=== PATIENT | female | born 1950 | race Caucasian/White ===

== ENCOUNTER 2016-12-29 05:51 | Observation (INO) ==
[2016-12-29] MEDS ORDERED: 0.9 % SODIUM CHLORIDE 1,000 ML IV ONE (05:54)
[2016-12-29] MEDS ORDERED: ONDANSETRON 4 MG/2 ML VIAL IV ONE (05:54)
[2016-12-29] MEDS: HYDROmorphone 2 MG/ML SYRINGE IV PRN ×12 (05:55→23:58)
[2016-12-29] MEDS: HYDROmorphone 2 MG/ML SYRINGE IV ONE ×2 (06:09→06:26)
[2016-12-29 06:37] LABS: Basophils # (Auto) 0 K/mcL (0.0-0.3); Basophils % (Auto) 0 % (0.0-2.0); Eosinophils # (Auto) 0 K/mcL (0.0-0.7); Eosinophils % (Auto) 0 % (0.0-7.0); Granulocytes % (Auto) 87.3 % (38.0-78.0); Lymphocytes # (Auto) 1.4 K/mcL (1.5-4.8); Lymphocytes % (Auto) 9.9 % (15.5-49.0); Mean Cell Volume 87.4 fL (80.0-100.0); Mean Corpuscular HGB Conc 34.4 g/dL (31.0-36.0); Monocytes # (Auto) 0.4 K/mcL (0.1-0.9); Monocytes % (Auto) 2.8 % (1.0-12.0); Platelet Count 263 K/mcL (140-440); RBC 4.76 M/mcL (4.00-5.20); Red Cell Distribution Width 13.4 % (11.5-14.5)
[2016-12-29 06:56] LABS: ALT/SGPT 22 U/l (0-40); Albumin 4.3 gm/dL (3.2-5.2); Albumin/Globulin Ratio 1.4 (1.0-2.3); Alkaline Phosphatase 48 U/L (39-117); Blood Urea Nitrogen 14 mg/dl (8-23); Lipase 35 U/L (7-60)
--- NOTE | 2016-12-29 07:01 | Emergency Department Note ---
Abdominal Pain HPI - General Chief Complaint: Abdominal Pain Stated Complaint: abdominal pain Time Seen by Provider: 12/29/16 06:58 Source: patient Mode of arrival: ambulatory Limitations: no limitations - History of Present Illness HPI Narrative: This patient began having right upper quadrant abdominal pain last evening about 5 pm. Associated with nausea and vomiting. Pain seems to be severe and does radiate into the upper back. MD Complaint: abdominal pain Onset (ago): hour(s) Consistency: constant Location: RUQ Severity: severe Quality: stabbing Radiation: back - Related Data Home Medications Medication Instructions Recorded Confirmed Aspirin [Kiah Chewable Aspirin] 81 mg PO DAILY 12/29/16 12/29/16 Furosemide [Lasix] 40 mg PO DAILY 12/29/16 12/29/16 Hydrocodone/APAP 7.5/325Mg [[place] 1 - 2 tab PO Q6HP PRN 12/29/16 12/29/16 7.5/325Mg] Lisinopril [Zestril] 5 mg PO DAILY 12/29/16 12/29/16 Naproxen 500 mg PO BID 12/29/16 12/29/16 Venlafaxine HCl [Effexor Xr] 150 mg PO DAILY 12/29/16 12/29/16 Allergies Allergy/AdvReac Type Severity Reaction Status Date / Time No Known Drug Allergies Allergy Verified 12/29/16 05:53 Review of Systems All systems ED: reviewed and negative except as stated. Abdominal Pain PMH - Past Medical History Surgical history ED: Reports: pacemaker/AICD - Social History Smoking status: Never smoker Physical Exam - General Limitations: no limitations General appearance: alert, in no apparent distress - Head Head exam: atraumatic, normocephalic - Eye Eye exam: Present: normal appearance - ENT ENT exam: normal exam - Neck Neck exam: Present: normal inspection - Chest Chest inspection: Present: normal inspection - Respiratory Respiratory exam: Present: normal lung sounds bilaterally - Cardiovascular Cardiovascular exam: Present: regular rate, normal rhythm, normal heart sounds - Abdominal Exam Abdominal exam: Present: soft, tenderness, guarding. Absent: distention Abdominal tenderness: Present: RUQ, severe - Neurological Exam Neurological exam: Present: alert, oriented X3 - Psychiatric Psychiatric exam: Present: normal affect, normal mood - Skin Skin exam: Present: warm, dry, intact Course Vital Signs Temperature 97.3 F 12/29/16 05:51 Pulse Rate 71 12/29/16 05:51 Respiratory Rate 20 12/29/16 05:51 Blood Pressure 191/107 12/29/16 05:51 Pulse Oximetry (%) 98 12/29/16 05:51 Temperature 97.3 F 12/29/16 05:51 Pulse Rate 92 H 12/29/16 06:55 Respiratory Rate 19 12/29/16 06:55 Blood Pressure 182/110 12/29/16 06:46 Pulse Oximetry (%) 91 12/29/16 06:55 Abdominal Pain - MDM Narrative Medical decision making narrative: Patient has acute cholecystitis with gallstones in the gallbladder wall neck. The gallbladder wall is slightly edematous. White count is 14,000. Liver function tests fortunately are normal. I gave the patient Migel and she will be admitted by Dr. Paniagua the surgeon for cholecystectomy. - Lab Data Lab results reviewed: Yes I reviewed the patient's lab results. Result diagrams: 12/29/16 06:00 12/29/16 06:00 Lab Results 12/29/16 12/29/16 Range/Units 06:00 06:00 WBC 14.2 H (4.5-11.0) K/mcL RBC 4.76 (4.00-5.20) M/mcL Hgb 14.3 (12.0-15.0) g/dL Hct 41.6 (36.0-48.0) % MCV 87.4 (80.0-100.0) fL MCH 30.0 (26.0-34.0) pg MCHC 34.4 (31.0-36.0) g/dL RDW 13.4 (11.5-14.5) % Plt Count 263 (140-440) K/mcL MPV 7.8 (7.4-10.4) fL Gran % 87.3 H (38.0-78.0) % Lymph % (Auto) 9.9 L (15.5-49.0) % Morton % (Auto) 2.8 (1.0-12.0) % Eos % (Auto) 0 (0.0-7.0) % Baso % (Auto) 0 (0.0-2.0) % Gran # 12.4 H (1.8-8.0) K/mcL Lymph # (Auto) 1.4 L (1.5-4.8) K/mcL Morton # (Auto) 0.4 (0.1-0.9) K/mcL Eos # (Auto) 0 (0.0-0.7) K/mcL Baso # (Auto) 0 (0.0-0.3) K/mcL Sodium 137 (133-145) mmol/L Potassium 3.7 (3.3-5.1) mmol/L Chloride 94 L (96-108) mmol/L Carbon Dioxide 23 (22-30) mmol/L Anion Gap 20.0 H (8-16) BUN 14 (8-23) mg/dl Creatinine 0.7 (0.6-1.1) mg/dl GFR Calculation 90 Glucose 194 H (70-105) mg/dL Calcium 9.7 (8.6-10.4) mg/dl Total Bilirubin 1.0 (0.0-1.0) mg/dL AST 31 (0-37) U/l ALT 22 (0-40) U/l Alkaline Phosphatase 48 (39-117) U/L Total Protein 7.4 (5.9-8.4) gm/dL Albumin 4.3 (3.2-5.2) gm/dL Globulin 3.1 (2.2-3.7) gm/dL Albumin/Globulin Ratio 1.4 (1.0-2.3) Lipase 35 (7-60) U/L - Radiology Data Radiology results reviewed: Yes I reviewed the patient's radiology results. Disposition Pt seen by ORGANIZATIONAL EFFECTIVENESS CONSULTANT/PA only: No Clinical Impression: Acute cholecystitis Disposition: Xfer As Outpt/Obs ([facility]) Condition: Good Referrals: No,PCP [Referring] - Time of Disposition: 08:20
[2016-12-29] MEDS ORDERED: PIPERACILLIN SODIUM/TAZOBACTAM 3.375 GM in DEXTROSE 5% IN WATER 50 ML IV ONE (07:46)
[2016-12-29 10:11] LABS: Appearance,Urine HAZY; Bacteria,Urine 0 /hpf (0); Bilirubin,Urine NEG (NEG); Color,Urine YELLOW; Glucose,Urine (UA) 50 mg/dL (NEG); Leukocyte Esterase,Urine NEG /uL (NEG); Mucus,Urine FEW /hpf (0); Nitrate,Urine NEG (NEG); Protein,Urine NEG (NEG); Specific Gravity,Urine 1.016 (1.000-1.035); Urine Amorphous Crystals FEW /hpf (0); Urine Blood NEG mg/dL (<0.03); Urine RBC 5 /hpf (0-1); Urine Squamous Epithelial Cell < 1 /hpf (0-4); Urine WBC 0 /hpf (0-4); Urobilinogen,Urine NEG (NEG)
--- NOTE | 2016-12-29 12:56 | Ultrasound Report ---
CLINICAL INFORMATION: Right upper quadrant pain COMPARISON: None. FINDINGS: There are multiple stones in the gallbladder, ranging up to 1 cm, with one stone lodged in the gallbladder neck. The gallbladder wall is mildly thickened: 4 mm. There is mild focal tenderness suggesting cholecystitis. Common bile and not visualized. The liver is diffusely hyperechoic compatible with fatty change. Pancreas is obscured by bowel gas. No free fluid IMPRESSION: Cholelithiasis with probable mild cholecystitis. Hyperechoic liver compatible fatty change. Common bile duct and pancreas not visualized Interpreted and Authenticated by: Elder Beckwith 12/29/16
[2016-12-29] MEDS ORDERED: oxyCODONE/APAP 5/325MG TABLET PO PRN (13:29)
--- NOTE | 2016-12-29 13:41 | General Surg History&Physical ---
History of Present Illness Patient information: Note initiated : 12/29/16 at 1:39 pm Service Date, if different from initiated Date: [] Patient: Shelly Howard a 66 y/o F admitted on 12/29/16 for Abd Pain. Chief Complaint: [] Recurrent abdominal pain with nausea and vomiting HPI: Ms. Howard is a 66 year old F admitted with acute cholecystitis. The patient had onset of severe abdominal pain about 5 PM yesterday. This was followed by multiple episodes of nausea and vomiting which became worse throughout the night. The pain radiated through to her back in her right shoulder. She finally came to the emergency room about 5 AM where she was noted to be in severe distress. Vital signs were stable except for mild tachycardia. White blood count was 14,000. Ultrasound showed gallstones with obstructive cystic duct due to a large gallstone and mildly thickened gallbladder wall. She has been admitted for treatment and probable urgent surgery. Review of Systems - Constitutional anorexia, headache(s), malaise - EENT Nose, mouth and throat: headache(s), no abnormal hearing, no dysphagia - Breasts other (Operative changes on the right) - Cardiovascular dyspnea on exertion, palpatations, rapid heart rate - Respiratory dyspnea on exertion, no cough, no wheezing, no chest congestion - Gastrointestinal abdominal pain, heartburn, nausea, vomiting - Genitourinary Genitourinary: no difficulty urinating, no urinary frequency, no urinary incontinence - Musculoskeletal arthralgias, joint swelling, myalgias, stiffness - Integumentary no changing lesions, no pruritus, no rash - Neurological headache(s), no abnormal gait, no dizziness, no memory loss, no syncope, no vertigo - Psychiatric anxiety, confusion, depression, irritability - Endocrine no cold intolerance, no heat intolerance, no palpitations - Hematologic/Lymphatic no easy bleeding, no easy bruising, no lymphadenopathy - Allergic/Immunologic no tongue swelling, no throat swelling, no wheezing Past History Past medical history: Degenerative arthritis Right breast cancer 1999 ASCVD pacemaker Hypertension Chronic depression 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 Past surgical history: Abdominal hysterectomy with bilateral salpingo-oophorectomy Right mastectomy with TRAM flap closure right breast Abdominoplasty Left total knee arthroplasty Right shoulder arthroplasty Past family history: Mother age 79 due to diabetes and complications of alcoholism Father age 87 cause unknown Past social history: Never smoker Never alcohol drinker Never a drug user Medications and Allergies Home Medications Medication Instructions Recorded Confirmed Type Aspirin [Kiah Chewable Aspirin] 81 mg PO DAILY 12/29/16 12/29/16 History Furosemide [Lasix] 40 mg PO DAILY 12/29/16 12/29/16 History Hydrocodone/APAP 7.5/325Mg [[place] 1 - 2 tab PO Q6HP PRN 12/29/16 12/29/16 History 7.5/325Mg] Lisinopril [Zestril] 5 mg PO DAILY 12/29/16 12/29/16 History Naproxen 500 mg PO BID 12/29/16 12/29/16 History Venlafaxine HCl [Effexor Xr] 150 mg PO DAILY 12/29/16 12/29/16 History Allergies Allergy/AdvReac Type Severity Reaction Status Date / Time No Known Drug Allergies Allergy Verified 12/29/16 05:53 Exam Temp Pulse Resp BP Pulse Ox 97.3 F 82 20 158/75 92 12/29/16 11:53 12/29/16 09:33 12/29/16 11:53 12/29/16 11:53 12/29/16 11:53 - General physical appearance well developed, well nourished, severe distress, severe pain - Eyes PERRL, normal ocular movement. negative: icteric - ENT normal pinna, normal nares, normal mucosa, no hearing loss, no congestion - Head Head exam IM: Present: atraumatic, normocephalic - Neck no masses, no bruits, trachea midline, no lymphadectomy, no venous distension - Cardiovascular Cardiovascular exam IM: Present: irregular rhythm, +S1, +S2. Absent: gallop, JVD - Respiratory normal expansion, normal respiratory effort, clear to percussion, clear to auscultation - Abdomen Abdomen: Present: soft, tender, bowel sounds, surgical scars (Status post abdominoplasty with repositioning of umbilicus), guarding, rebound, distended Hernia: Present: none - Genitourinary Present: normal external genitalia - Integumentary Present: no rash, no growths, no abnormal pigmentation - Neurologic Present: normal coordination, normal sensation - Musculoskeletal Present: normal gait, normal posture - Psychiatric Present: oriented to time, oriented to person, oriented to place, speech is normal, memory intact Assessment and Plan (1) Cholecystitis, acute with cholelithiasis . Decision for surgery will be made after her echocardiogram is completed Status: Acute (2) Cardiomyopathy due to chemotherapy Stat echocardiogram will be done Status: Acute (3) History of cancer of right breast Status: Acute (4) Hypertension Status: Acute (5) Degenerative arthritis Status: Acute (6) Chronic depression Status: Acute
[2016-12-29] MEDS: 0.9 % SODIUM CHLORIDE 1,000 ML IV SCH ×2 (13:47→21:53)
--- NOTE | 2016-12-29 14:04 | XRay Report ---
CLINICAL INFORMATION: Preop COMPARISON: None. FINDINGS: The heart is mildly enlarged. Cardiac defibrillator and leads are unremarkable. Mediastinum and pulmonary vessels are normal. The lungs are clear. No effusions. IMPRESSION: No acute cardiopulmonary disease Interpreted and Authenticated by: Elder Beckwith 12/29/16
[2016-12-29] MEDS: PIPERACILLIN SODIUM/TAZOBACTAM 3.375 GM in DEXTROSE 5% IN WATER 50 ML IV SCH ×3 (15:01→23:58)
[2016-12-30] MEDS: HYDROmorphone 2 MG/ML SYRINGE IV PRN ×8 (03:11→23:42)
[2016-12-30] MEDS: 0.9 % SODIUM CHLORIDE 1,000 ML IV SCH ×4 (05:07→23:44)
[2016-12-30] MEDS: PIPERACILLIN SODIUM/TAZOBACTAM 3.375 GM in DEXTROSE 5% IN WATER 50 ML IV SCH ×3 (06:01→17:47)
[2016-12-30] MEDS ORDERED: FLU VACC QS2017-18 36MOS UP/PF 60 MCG/0.5 ML SYRINGE IM ONE (09:00)
[2016-12-30] MEDS ORDERED: PANTOPRAZOLE 40 MG VIAL IV ONE (09:15)
[2016-12-30 09:17] LABS: Basophils # (Auto) 0 K/mcL (0.0-0.3); Basophils % (Auto) 0.3 % (0.0-2.0); Eosinophils # (Auto) 0.1 K/mcL (0.0-0.7); Granulocytes % (Auto) 71.4 % (38.0-78.0); Lymphocytes # (Auto) 1.7 K/mcL (1.5-4.8); Lymphocytes % (Auto) 19.4 % (15.5-49.0); Mean Corpuscular HGB Conc 34.4 g/dL (31.0-36.0); Monocytes # (Auto) 0.7 K/mcL (0.1-0.9); Monocytes % (Auto) 7.9 % (1.0-12.0); Platelet Count 192 K/mcL (140-440); RBC 3.83 M/mcL (4.00-5.20); Red Cell Distribution Width 13.4 % (11.5-14.5)
[2016-12-30 09:38] LABS: ALT/SGPT 35 U/l (0-40); Albumin 3.2 gm/dL (3.2-5.2); Albumin/Globulin Ratio 1.3 (1.0-2.3); Alkaline Phosphatase 39 U/L (39-117); Bilirubin,Direct 0.4 mg/dL (0.0-0.3); Blood Urea Nitrogen 12 mg/dl (8-23); Gamma Glutamyl Transpeptidase 37 U/L (5-36); Magnesium 1.7 mg/dL (1.6-2.5)
[2016-12-30] MEDS ORDERED: IPRATROPIUM/ALBUTEROL 3 ML AMPUL.NEB NEB PRN (13:11)
[2016-12-30] MEDS ORDERED: diphenhydrAMINE 50 MG/ML VIAL IV PRN (13:11)
[2016-12-30] MEDS ORDERED: ONDANSETRON 4 MG/2 ML VIAL IV PRN ×2 (13:11→14:51)
[2016-12-30] MEDS ORDERED: BENZOCAINE/MENTHOL 1 LOZENGE PO PRN (13:11)
[2016-12-30] MEDS ORDERED: NALOXONE HCL 0.4 MG/ML VIAL IV PRN (13:11)
[2016-12-30] MEDS ORDERED: fentaNYL 100 MCG/2 ML VIAL IV PRN ×2 (13:11→15:07)
[2016-12-30] MEDS ORDERED: FLUMAZENIL 0.1 MG/ML ML IV PRN (13:11)
[2016-12-30] MEDS ORDERED: MEPERIDINE 25 MG/ML SYRINGE IV PRN (13:11)
[2016-12-30] MEDS ORDERED: HYDROmorphone 2 MG/ML SYRINGE IV PRN (13:11)
[2016-12-30] MEDS ORDERED: LACTATED RINGERS 250 ML IV PRN (13:11)
[2016-12-30] MEDS ORDERED: LACTATED RINGERS 1,000 ML IV SCH (13:15)
[2016-12-30] MEDS ORDERED: NEOSTIGMINE 1 MG/ML VIAL IV ONE (13:22)
[2016-12-30] MEDS ORDERED: ROCURONIUM 10 MG/ML ML IV ONE (13:22)
[2016-12-30] MEDS ORDERED: fentaNYL 100 MCG/2 ML VIAL IV ONE (13:22)
[2016-12-30] MEDS ORDERED: MIDAZOLAM 5 MG/5 ML VIAL ONE (13:22)
[2016-12-30] MEDS ORDERED: DEXAMETHASONE 10 MG/ML VIAL ONE (13:22)
[2016-12-30] MEDS ORDERED: GLYCOPYRROLATE 0.2 MG/ML VIAL IV ONE (13:22)
[2016-12-30] MEDS ORDERED: ONDANSETRON 4 MG/2 ML VIAL ONE (13:22)
[2016-12-30] MEDS ORDERED: LIDOCAINE HCL/PF 100 MG/5 ML SYRINGE IV ONE (13:22)
[2016-12-30] MEDS ORDERED: PROPOFOL 200 MG/20 ML VIAL IV ONE (13:22)
--- NOTE | 2016-12-30 14:35 | Brief Operative Note ---
Date of procedure: 12/30/16 Pre-op diagnosis: acute cholecystitiswith cholelithiasis Post-op diagnosis: other (acute gangrenous cholecystitis with cholelithiasis) Procedure: laparoscopic cholecystectomy Grafts/Implants: No (ciera x 1) Anesthesia: GETA Findings: acute severe ibflammation of gall bladder with necrotic wall Complications: none Surgeon: Juan Paniagua Estimated blood loss (cc): 100 Specimens Removed/Pathology: other (gallbladder) Condition: stable Disposition: PACU
[2016-12-30] MEDS ORDERED: ACETAMINOPHEN 1,000 MG/100 ML BOTTLE IV PRN ×2 (14:51→15:00)
[2016-12-30 19:30] LABS: Basophils # (Auto) 0 K/mcL (0.0-0.3); Basophils % (Auto) 0.4 % (0.0-2.0); Eosinophils # (Auto) 0.1 K/mcL (0.0-0.7); Eosinophils % (Auto) 0.9 % (0.0-7.0); Granulocytes % (Auto) 87.2 % (38.0-78.0); Lymphocytes # (Auto) 0.9 K/mcL (1.5-4.8); Lymphocytes % (Auto) 9.6 % (15.5-49.0); Mean Cell Volume 87.7 fL (80.0-100.0); Mean Corpuscular HGB Conc 33.9 g/dL (31.0-36.0); Mean Corpuscular Hemoglobin 29.7 pg (26.0-34.0); Monocytes # (Auto) 0.2 K/mcL (0.1-0.9); Monocytes % (Auto) 1.9 % (1.0-12.0); Platelet Count 192 K/mcL (140-440); RBC 3.79 M/mcL (4.00-5.20); Red Cell Distribution Width 13.8 % (11.5-14.5)
[2016-12-30 19:40] LABS: ALT/SGPT 50 U/l (0-40); Albumin 3.2 gm/dL (3.2-5.2); Albumin/Globulin Ratio 1.2 (1.0-2.3); Alkaline Phosphatase 43 U/L (39-117); Bilirubin,Direct 0.4 mg/dL (0.0-0.3); Blood Urea Nitrogen 11 mg/dl (8-23); Gamma Glutamyl Transpeptidase 39 U/L (5-36); Magnesium 1.6 mg/dL (1.6-2.5); Uric Acid 3.7 mg/dL (2.5-8.0)
[2016-12-30] MEDS: VENLAFAXINE 150 MG CAP.XL.24H PO SCH (20:14)
[2016-12-31] MEDS: PIPERACILLIN SODIUM/TAZOBACTAM 3.375 GM in DEXTROSE 5% IN WATER 50 ML IV SCH ×3 (00:12→11:23)
[2016-12-31] MEDS: HYDROmorphone 2 MG/ML SYRINGE IV PRN (01:38)
[2016-12-31] MEDS: oxyCODONE/APAP 5/325MG TABLET PO PRN ×4 (03:59→15:30)
[2016-12-31 05:44] LABS: Basophils # (Auto) 0 K/mcL (0.0-0.3); Basophils % (Auto) 0.1 % (0.0-2.0); Eosinophils # (Auto) 0 K/mcL (0.0-0.7); Eosinophils % (Auto) 0 % (0.0-7.0); Granulocytes % (Auto) 82.2 % (38.0-78.0); Lymphocytes % (Auto) 13.6 % (15.5-49.0); Mean Cell Volume 88.8 fL (80.0-100.0); Mean Corpuscular HGB Conc 34.1 g/dL (31.0-36.0); Mean Corpuscular Hemoglobin 30.3 pg (26.0-34.0); Monocytes # (Auto) 0.3 K/mcL (0.1-0.9); Monocytes % (Auto) 4.1 % (1.0-12.0); Platelet Count 187 K/mcL (140-440); RBC 3.31 M/mcL (4.00-5.20); Red Cell Distribution Width 13.8 % (11.5-14.5)
[2016-12-31 06:10] LABS: ALT/SGPT 38 U/l (0-40); Albumin/Globulin Ratio 1.3 (1.0-2.3); Alkaline Phosphatase 45 U/L (39-117); Bilirubin,Direct < 0.2 mg/dL (0.0-0.3); Blood Urea Nitrogen 10 mg/dl (8-23); Gamma Glutamyl Transpeptidase 37 U/L (5-36); Magnesium 1.7 mg/dL (1.6-2.5); Uric Acid 3.1 mg/dL (2.5-8.0)
[2016-12-31] MEDS: 0.9 % SODIUM CHLORIDE 1,000 ML IV SCH ×3 (06:27→11:30)
[2016-12-31] MEDS ORDERED: PANTOPRAZOLE 40 MG VIAL IV SCH ×2 (07:30→09:00)
[2016-12-31] MEDS ORDERED: FLU VACC QS2017-18 36MOS UP/PF 60 MCG/0.5 ML SYRINGE IM ONE (08:00)
[2016-12-31] MEDS: VENLAFAXINE 150 MG CAP.XL.24H PO SCH (08:19)
[2016-12-31] MEDS ORDERED: VENLAFAXINE 150 MG CAP.XL.24H PO SCH (09:00)
--- NOTE | 2016-12-31 14:55 | General Surgery Progress Note ---
Subjective Patient reports: feels better, pain is less, tolerating liquids well, flatus, bowel movement, afebrile Narrative: Note initiated : 12/31/16 at 2:53 pm Service Date, if different from initiated Date: [] Patient: Shelly Howard 66 y/o F admitted on 12/29/16 for Abd Pain/Cholecystitis , Acute with Cholelithiasis. Chief Complaint: [patient is much better. she has much less pain.her liver enzymes are good. her hgb id down slightly.] Objective Temp Pulse Resp BP Pulse Ox 98.6 F 75 16 122/80 93 12/31/16 12:00 12/31/16 03:51 12/31/16 12:00 12/31/16 12:00 12/31/16 12:00 - Additional Data Intake & Output - Last 24 hours: Intake & Output 12/29/16 12/30/16 12/31/16 01/01/17 05:59 05:59 05:59 05:59 Intake Total 2446 / 3496 3190 / 3190 1480 / 1480 Output Total 1765 / 1765 500 / 500 Balance 2446 / 3496 1425 / 1425 980 / 980 Weight 196 lb 12.8 oz 205 lb 3.2 oz - General physical appearance no distress - Eyes PERRL - ENT no congestion - Neck no venous distension - Respiratory normal respiratory effort, clear to auscultation - Cardiovascular Cardiovascular exam: Present: normal rate and rhythm, RRR, +S1, +S2. Absent: JVD - Abdomen tender, surgical scars, distended (abdomen is distended; ciera drainage is bloody) - Integumentary no rash, no growths, no abnormal pigmentation - Neurologic normal coordination, normal sensation - Musculoskeletal normal gait, normal posture - Psychiatric oriented to time, oriented to person, oriented to place, speech is normal, memory intact - Labs 12/31/16 04:15 12/31/16 04:15 Diabetes panel 12/30/16 12/31/16 Range/Units 16:59 04:15 Sodium 137 138 (133-145) mmol/L Potassium 3.7 3.7 (3.3-5.1) mmol/L Chloride 98 104 (96-108) mmol/L Carbon Dioxide 24 24 (22-30) mmol/L BUN 11 10 (8-23) mg/dl Creatinine 0.6 0.5 L (0.6-1.1) mg/dl Glucose 114 H 153 H (70-105) mg/dL Calcium 8.6 8.3 L (8.6-10.4) mg/dl AST 76 H 48 H (0-37) U/l ALT 50 H 38 (0-40) U/l Alkaline Phosphatase 43 45 (39-117) U/L Total Protein 5.8 L 5.4 L (5.9-8.4) gm/dL Albumin 3.2 3.0 L (3.2-5.2) gm/dL Triglycerides 109 102 (<150) mg/dl Calcium panel 12/30/16 12/31/16 Range/Units 16:59 04:15 Calcium 8.6 8.3 L (8.6-10.4) mg/dl Phosphorus 1.7 L 2.0 L (2.7-4.5) mg/dL Albumin 3.2 3.0 L (3.2-5.2) gm/dL Pituitary panel 12/30/16 12/31/16 Range/Units 16:59 04:15 Sodium 137 138 (133-145) mmol/L Potassium 3.7 3.7 (3.3-5.1) mmol/L Chloride 98 104 (96-108) mmol/L Carbon Dioxide 24 24 (22-30) mmol/L BUN 11 10 (8-23) mg/dl Creatinine 0.6 0.5 L (0.6-1.1) mg/dl Glucose 114 H 153 H (70-105) mg/dL Calcium 8.6 8.3 L (8.6-10.4) mg/dl Adrenal panel 12/30/16 12/31/16 Range/Units 16:59 04:15 Sodium 137 138 (133-145) mmol/L Potassium 3.7 3.7 (3.3-5.1) mmol/L Chloride 98 104 (96-108) mmol/L Carbon Dioxide 24 24 (22-30) mmol/L BUN 11 10 (8-23) mg/dl Creatinine 0.6 0.5 L (0.6-1.1) mg/dl Glucose 114 H 153 H (70-105) mg/dL Calcium 8.6 8.3 L (8.6-10.4) mg/dl Total Bilirubin 0.8 0.5 (0.0-1.0) mg/dL AST 76 H 48 H (0-37) U/l ALT 50 H 38 (0-40) U/l Alkaline Phosphatase 43 45 (39-117) U/L Total Protein 5.8 L 5.4 L (5.9-8.4) gm/dL Albumin 3.2 3.0 L (3.2-5.2) gm/dL Assessment and Plan (1) Cholecystitis, acute with cholelithiasis Status: Acute Assessment and plan: patient is stable for discharge. Current Visit: Yes (2) Cardiomyopathy due to chemotherapy Status: Acute Current Visit: Yes (3) History of cancer of right breast Status: Acute Current Visit: Yes (4) Hypertension Status: Acute Current Visit: Yes (5) Degenerative arthritis Status: Acute Current Visit: Yes (6) Chronic depression Status: Acute Current Visit: Yes - Time Spent With Patient Total time spent is greater than 50% in coordination of care (as documented) at patient's floor/unit and/or counseling patient:
--- NOTE | 2016-12-31 15:07 | Discharge Summary ---
Providers - Providers Patient information: Note initiated : 12/31/16 at 3:05 pm Service Date, if different from initiated Date: [] Patient: Shelly Howard 66 y/o F admitted on 12/29/16 for Abd Pain/Cholecystitis , Acute with Cholelithiasis. Chief Complaint: [] Date of admission: 12/29/16 Discharge date: 12/31/16 Attending physician: Juan Paniagua Hospitalization Hospital course: 66 -year-old female who was admitted with acute cholecystitis. She underwent cholecystectomy the following day and was monitored overnight. She had no perioperative problems and was discharged in stable satisfactory condition. Discharge diagnosis: acute cholecystitis Reason for admission: acute abdominal pain Procedures: laparoscopic cholecystectomy Complications: none Exam Temp Pulse Resp BP Pulse Ox 98.6 F 75 16 122/80 93 12/31/16 12:00 12/31/16 03:51 12/31/16 12:00 12/31/16 12:00 12/31/16 12:00 - General physical appearance well developed, well nourished, no distress - Eyes PERRL, normal ocular movement - ENT normal pinna, normal nares, normal mucosa, no hearing loss, no congestion - Head Head exam IM: Present: atraumatic, normocephalic - Neck no masses, no bruits, trachea midline, no lymphadectomy, no venous distension - Cardiovascular Cardiovascular exam IM: Present: normal rate and rhythm - Respiratory normal expansion, normal respiratory effort, clear to percussion, clear to auscultation - Abdomen Abdomen: Present: tender, bowel sounds, distended Hernia: Present: none - Genitourinary Present: normal external genitalia - Integumentary Present: no rash, no growths, no abnormal pigmentation - Neurologic Present: normal coordination, normal sensation - Musculoskeletal Present: normal gait, normal posture - Psychiatric Present: oriented to time, oriented to person, oriented to place, speech is normal, memory intact Discharge Plan - Patient/Caregiver Discharge Instructions Activity: increase activity as tolerated Diet: Low Fat Additional Instructions: Leave dressings and DAMARIS drain in place until seen in the physician's office. Office visit in 2 weeks. May shower, no soaking in tub/pool. Do not use soap or lotions over dressing, do not scrub dressing. Pat dry after shower. Return to the ER for fevers above 100.5, vomiting, abdominal pain not controlled by medication, inability to urinate, or have a BM. Prescriptions: Levofloxacin [Levaquin] 500 mg PO DAILY #7 tablet oxyCODONE/APAP [Percocet 5-325 mg] 1 tab PO Q4HP PRN #30 tablet PRN Reason: Pain - Follow up Plan Follow up with: Juan Paniagua MD [Physician] - 01/13/17 9:15 am (The office will call you to try and move this appointment to later in the day.) Disposition: Home, Self-Care Prognosis: Good Rehab Potential: Good I certify that the patient requires SNF services.: No Overall status at discharge: patient is not back to baseline Pending Studies Diet Full Liquid Diet Start ThuDec 30 Breakfast Hydromorphone HCl (Dilaudid) 1 mg IV Q2HP PRN PRN Reason: Pain Last Admin: 12/31/16 01:38 Dose: 1 mg Admin: 12/30/16 23:42 Dose: 1 mg Admin: 12/30/16 21:59 Dose: 1 mg Admin: 12/30/16 19:27 Dose: 1 mg Sodium Chloride (Sodium Chloride 0.9%) 1,000 mls @ 150 mls/hr IV .Q6H40M [facility] Last Admin: 12/31/16 11:30 Dose: Not Given Admin: 12/31/16 07:30 Dose: 150 mls/hr Admin: 12/31/16 06:27 Dose: Not Given Infusion: 12/31/16 06:25 Dose: 150 mls/hr Admin: 12/30/16 23:44 Dose: 150 mls/hr Infusion: 12/30/16 22:36 Dose: 150 mls/hr Admin: 12/30/16 15:55 Dose: 150 mls/hr Piperacillin Sod/Tazobactam (Sod 3.375 gm/ Dextrose) 50 mls @ 100 mls/hr IV Q6H [facility] Last Admin: 12/31/16 11:23 Dose: 100 mls/hr Infusion: 12/31/16 05:56 Dose: 100 mls/hr Admin: 12/31/16 05:26 Dose: 100 mls/hr Infusion: 12/31/16 00:42 Dose: 100 mls/hr Admin: 12/31/16 00:12 Dose: 100 mls/hr Infusion: 12/30/16 18:17 Dose: 100 mls/hr Admin: 12/30/16 17:47 Dose: 100 mls/hr Acetaminophen (Ofirmev) 1,000 mg in 100 mls @ 200 mls/hr IV Q6HP PRN PRN Reason: Pain Last Admin: 12/30/16 15:54 Dose: 200 mls/hr Ondansetron HCl (Zofran) 4 mg IV Q4HP PRN PRN Reason: Nausea And Vomiting Last Admin: 12/30/16 15:11 Dose: 4 mg Oxycodone/Acetaminophen (Percocet 5-325 Mg) 1 tab PO Q4HP PRN PRN Reason: Pain Last Admin: 12/31/16 11:22 Dose: 1 tab Admin: 12/31/16 07:30 Dose: 1 tab Admin: 12/31/16 03:59 Dose: 1 tab Pantoprazole Sodium (Protonix) 40 mg IV QAMAC [facility] Last Admin: 12/31/16 07:28 Dose: 40 mg Venlafaxine HCl (Effexor Xr) 150 mg PO DAILY [facility] Last Admin: 12/31/16 08:19 Dose: 150 mg Admin: 12/30/16 20:14 Dose: 150 mg Shift Summary 12/31/16 04:38 Shift Summary by Joanna Frias Pt slept most of the night. Was getting IV meds ever 2 hours; took PO around 0400. States pain not as sharp after surgery, just more steady. Has been up to BR & now voiding well. She tolerated dinner well w/only slight nausea. DAMARIS putting out sanguenous drainage; will probably d/c with it. She has had DAMARIS drains before & understands how they work. Hoping to go home today. Initialized on 12/31/16 04:38 - END OF NOTE
--- NOTE | 2017-01-01 14:33 | Surgical Pathology Report ---
HISTOLOGY SPECIMEN MICROSCOPIC DIAGNOSIS GALLBLADDER, CHOLECYSTECTOMY: -- ACUTE CHOLECYSTITIS WITH MUCOSAL HEMORRHAGE AND NECROSIS. -- CHOLELITHIASIS. -- SEROSAL ADHESIONS WITH ACUTE SEROSITIS AND LOCALIZED ABSCESS FORMATION. (:maria fernanda) PROCEDURAL IMPRESSION Cholelithiasis; cholecystitis. GROSS DESCRIPTION Received in formalin labeled gallbladder, is a [place]-batista gallbladder. It is 10.7 x 4.8 x 2.4 cm. On the hepatic bed there is [place]-green possible exudate. Grossly there are no perforations identified. There are no clips on the duct. The specimen is filled with viscous red-brown fluid and multiple yellow stones from less than 0.1 to 1.2 cm in greatest dimension. The mucosa is red-brown and splotchy with areas of robb yellow pigmentation. The wall is up to 0.4 cm thick. No discrete masses or lesions are identified. [employer] sections submitted - two cassettes. (MICHAELB:maria fernanda) Electronically Signed by: Eunice Marrero D.O.
--- NOTE | 2017-01-02 07:53 | Operative Note ---
DATE OF OPERATION: 12/30/2016 PREOPERATIVE DIAGNOSIS: Acute cholecystitis with cholelithiasis. POSTOPERATIVE DIAGNOSIS: Acute gangrenous cholecystitis with cholelithiasis. PROCEDURE: Laparoscopic cholecystectomy. SURGEON: Juan Paniagua MD FINDINGS: Acute severe inflammation of gallbladder with necrotic wall. DESCRIPTION OF PROCEDURE: Under general anesthesia, the patient's abdomen was prepped and draped in a sterile field. A supraumbilical incision was made. A Veress needle was inserted uneventfully. Abdomen was insufflated with 2 liters C02. A 12 mm port was placed. The laparoscope was placed. Severely inflamed, dark, black-green gallbladder was encountered. It was tensely dilated. Under videoscopic guidance, a 12 mm port and two 5 mm ports were placed in the right subcostal region. The gallbladder was decompressed with a Weck needle. It had clear purulent bile. The gallbladder was grasped in position. All of the wall of the gallbladder was severely inflamed and appeared to be necrotic. Using essentially all blunt dissection, the cystic duct was dissected until it was verified to enter the gallbladder. Two cystic artery branches were dissected and followed onto the wall of the gallbladder. The cystic duct was transected using Endo GI stapler. The cystic arteries were clipped with four clips each and divided. The gallbladder was then from the infrahepatic bed using blunt dissection. Irrigation was carried out and the bleeding from the bed ceased. DAMARIS drain was placed in the subhepatic space. It was felt that no hemostatic material was needed. C02 was allowed to escape from the abdomen and the ports were removed. Fascia of the umbilicus was closed with 0 Vicryl. Skin incisions were closed with socorro. Drain was secured with 2-0 Nylon. The patient tolerated the procedure well. She was awakened, transferred to a bed and taken to the Post-Anesthetic Care Unit in stable satisfactory condition. LCS:[email or web address] Job ID: [id number] Doc ID: [id number] Juan Paniagua M.D.
== END 2016-12-31 15:30 | disposition home or self-care (01) ==
LOC: MEDSUR 05:51 → ED 05:51 → MEDSUR 09:30
PROVIDERS: ADMIT Family Medicine Adult Medicine; ATTEND Family Medicine Adult Medicine